=== PATIENT | male | born 1940 | race Caucasian/White ===

== ENCOUNTER → 2017-05-21 | Outpatient (CLI) | payer OTHER | LOC: BMCIMAGING 14:21 | PROVIDERS: ATTEND Internal Medicine | DX: M79.672 Pain in left foot (principal) ==

== ENCOUNTER → 2018-01-04 | Outpatient (CLI) | payer OTHER | LOC: FIMAGING 13:31 | PROVIDERS: ATTEND Psychiatry & Neurology Neurology | DX: R29.898 Other symptoms and signs involving the musculoskeletal system (principal); R93.7 Abnormal findings on diagnostic imaging of other parts of musculoskeletal system ==

== ENCOUNTER → 2018-01-13 | Outpatient (CLI) | payer OTHER | LOC: FIMAGING 12:22 | PROVIDERS: ATTEND Psychiatry & Neurology Neurology | DX: M50.323 Other cervical disc degeneration at C6-C7 level (principal); M89.38 Hypertrophy of bone, other site ==

== ENCOUNTER 2018-02-21 10:33 | Day surgery (SDC) | payer OTHER ==
[2018-02-21] MEDS ORDERED: ceFAZolin 2 GM/SWFI 2 GM/20 ML SYR IVP ONE (10:56)
[2018-02-21] MEDS ORDERED: LR 1,000 ML IV ONE (10:57)
[2018-02-21] MEDS ORDERED: LIDOCAINE 1% 2 ML INJ ID PRN (10:57)
[2018-02-21] MEDS ORDERED: ceFAZolin 2 GM/DEXTROSE 100 ML IV ONE (11:15)
[2018-02-21] MEDS ORDERED: MIDAZOLAM 2 MG/2 ML VIAL IVP ONE (13:26)
--- NOTE | 2018-02-21 13:26 | PDANEPAE ---
ANE History of Present Illness 77 yo for excision melanoma rue ANE Past Medical History - Cardiovascular History Hx Hypertension: Yes Hx Arrhythmias: No Hx Chest Pain: No Hx Coronary Artery / Peripheral Vascular Disease: No Hx CHF / Valvular Disease: No Hx Palpitations: No Cardiovascular History Comment: CHOL RX; - Pulmonary History Hx COPD: No Hx Asthma/Reactive Airway Disease: No Hx Recent Upper Respiratory Infection: No Hx Oxygen in Use at Home: No Hx Sleep Apnea: No Sleep Apnea Screening Result - Last Documented: Negative - Neurologic History Hx Cerebrovascular Accident: No Hx Seizures: No - Endocrine History Hx Diabetes: No - Renal History Hx Renal Disorders: Yes Renal History Comment: 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 - Liver History Hx Hepatic Disorders: No - Neurological & Psychiatric Hx Hx Neurological and Psychiatric Disorders: Yes Neurological / Psychiatric History Comment: ARTHRITIS CERVICAL SPINE-PAIN, STIFFNESS-DENIES N/T. - Cancer History Hx Cancer: Yes Cancer History Comment: MELANOMA R UPPER ARM - Congenital Disorder History Hx Congenital Disorders: No - GI History Hx Gastrointestinal Disorders: No - Other Health History Other Health History: MASS R ARM - Chronic Pain History Chronic Pain: No - Surgical History Prior Surgeries: BILAT SHOULDER SURGERIES X2-SEPARATELY;. BACK SX RUPTURED DISC ~97; ANE Review of Systems Review of Systems: - Exercise capacity METS (RN): 4 METS ANE Patient History - Allergies Allergies/Adverse Reactions: No Allergies [NKDA] Allergy (Verified 02/19/18 16:26) - Home Medications Home Medications: Dutasteride [Avodart] 0.05 mg PO DAILY 01/18/11 [Last Taken Unknown] Atorvastatin Calcium 02/19/18 [Last Taken Unknown] Lisinopril-Hctz 10-12.5 mg Tab 02/19/18 [Last Taken Unknown] Prednisone 02/19/18 [Last Taken Unknown] - NPO status NPO Status: no food or drink >8 hours NPO Since - Liquids (Date): 02/21/18 NPO Since - Liquids (Time): 07:00 NPO Since - Solids (Date): 02/20/18 NPO Since - Solids (Time): 18:00 - Anes Hx Anes Hx: no prior problems - Smoking Hx Smoking Status: Former smoker ANE Labs/Vital Signs - Vital Signs Blood Pressure: 154/83 Heart Rate: 59 Respiratory Rate: 16 O2 Sat (%): 95 Height: 5 ft 11 in Weight: 81.647 kg ANE Physical Exam - Airway Neck exam: FROM Mallampati Score: Class 2 Mouth exam: normal dental/mouth exam - Pulmonary Pulmonary: no respiratory distress - Cardiovascular Cardiovascular: regular rate and rhythym - ASA Status ASA Status: II ANE Anesthesia Plan Anesthesia Plan: GA w LMA
[2018-02-21] MEDS ORDERED: BUPIVACAINE 0.5% 30 ML SDV ONE (13:47)
[2018-02-21] MEDS ORDERED: fentaNYL 100 MCG/2 ML INJ ONE ×2 (13:49→14:51)
[2018-02-21] MEDS ORDERED: PROPOFOL/EMULSION 500 MG/50 ML BOTTLE IV ONE (13:50)
[2018-02-21] MEDS ORDERED: BUPIVACAINE 0.25% 30 ML SDV ONE (13:56)
[2018-02-21] MEDS ORDERED: CEFAZOLIN 2 GM/DEXTROSE/100 ML BAG IV ONE (14:24)
--- NOTE | 2018-02-21 14:26 | PDHPUP ---
History & Physical Update H&P update statement: This history and physical update is based on an assessment of the patient which was completed after admission or registration (within 24 hours), but prior to the surgery/procedure. H&P update: H&P reviewed & patient examined, no change in patient's condition since H&P completed
[2018-02-21] MEDS: BUPIVACAINE 0.25% 30 ML SDV ONE ×2 (15:18→15:20)
[2018-02-21] MEDS ORDERED: NALOXONE HCL 0.4 MG/ML INJ IVP PRN (15:36)
[2018-02-21] MEDS ORDERED: HYDROmorphONE/DILAUDID 1 MG/ML INJ IVP PRN (15:36)
[2018-02-21] MEDS ORDERED: HYDROCODONE/APAP 5/325 TAB PO PRN (15:36)
[2018-02-21] MEDS ORDERED: ONDANSETRON 4 MG/2 ML VIAL IVP PRN (15:36)
[2018-02-21] MEDS ORDERED: fentaNYL 100 MCG/2 ML INJ IVP PRN (15:36)
--- NOTE | 2018-02-21 15:37 | POSTANESTH ---
Post Anesthetic Evaluation Cardiovascular Status: Normal, Stable Respiratory Status: Tx Decrease in SpO2 Level of Consciousness/Mental Status: Alert and Oriented Pain Control: Adequate, Prn Tx Ordered Nausea/Vomiting Control: Adequate, Prn Tx Ordered Complications Possibly Related to Anesthesia: None Noted
[2018-02-21] MEDS ORDERED: OXYCODONE/APAP 5/325 TAB PO PRN (15:38)
[2018-02-21] MEDS ORDERED: ONDANSETRON DISINTEGRATING 4 MG TAB PO PRN (15:38)
[2018-02-21 17:14] VITALS: BP 135/69
--- NOTE | 2018-02-21 17:46 | POSTOPPROG ---
Post Op Note Date of Operation: 02/21/18 (#[id number]) Surgeon: Richard Roas (, FACS) Anesthesiologist: Robert Burns MD Pre-op Diagnosis: melanoma right upper posterior arm Indication: 2.8 Breslow thickness, Bib's level IV melanoma Procedure: wide excision melanoma, sentinel node mapping and axillary lymph node bx Findings: 09/16 sentinel nodes neg Inf/Abcess present in the surg proc area at time of surgery?: No EBL: Minimal (25ml) Specimen(s): sentinel node x 1 wide excision melanoma site
[2018-02-21] MEDS ORDERED: SENNOSIDES/DOCUSATE SODIUM TAB PO SCH (21:00)
--- NOTE | 2018-02-22 04:50 | GOP ---
[f rep st] OPERATIVE REPORT DATE OF OPERATION: 02/21/2018 SURGEON: Richard Rosa MD, FACS ANESTHESIA: General by laryngeal mask. ANESTHESIOLOGIST: Sabine Solis MD. PREOPERATIVE DIAGNOSIS: Malignant melanoma, right upper posterior arm. POSTOPERATIVE DIAGNOSIS: Malignant melanoma, right upper posterior arm. PROCEDURE PERFORMED: 1. Wide excision of malignant melanoma. 2. Pomerene lymph node mapping and axillary lymph node biopsy. FINDINGS: 1. A solitary sentinel node in the upper anterior level 1 chain, submitted for permanent section. No evidence of metastatic malignancy on frozen section. 2. Wide excision melanoma site (2 cm) excised and submitted for permanent section with orientation. ESTIMATED BLOOD LOSS: 25 mL. DESCRIPTION OF PROCEDURE: After informed consent was obtained, the patient was brought to the operating room and placed under general anesthesia. The right arm was circumferentially prepped along with the axilla and shoulder. The patient had a preoperative sentinel node injection but failed to visualize a sentinel node on lymphoscintigraphy. The axillary location of the sentinel node was confirmed with the gamma probe before prepping. After the field was draped, a time-out and identification of the patient was performed. The gamma probe was sterilely sheathed and brought onto the field and used to identify the point of maximum activity at the skin level and this area was infiltrated with 0.25% Marcaine, incised transversely just posterior to the pectoralis border in the upper axilla. Dissection was carried through the skin , subcutaneous tissues and superficial axillary fascia, guiding the dissection by following the signal. The sentinel node was identified, noted to be approximately 1 cm in diameter and pink in color. Lymphovascular structures surrounding the sentinel node were dissected and divided with cautery. The sentinel node was removed from the field and submitted for permanent section. Hemostasis was secured within the cavity. Subcutaneous tissues were closed with 3-0 Vicryl suture. Skin was closed with 4-0 Monocryl suture in a subcuticular fashion. While we were waiting for the results of the frozen section, wide excision of the posterior upper arm melanoma site was performed as follows. The planned incision had been previously marked on the skin with a marking pen and this was infiltrated with 0.25% Marcaine circumferentially and the incision incised with a scalpel and dissection carried out through the skin and subcutaneous tissues. The deep subcutaneous plane was dissected with cautery and hemostasis was secured with cautery. The specimen was removed from the field and tagged for orientation and submitted for permanent section. The wound edges were undermined for a distance of approximately 1.5 to 2 cm in all directions and the wound closed longitudinally with interrupted 2-0 Vicryl sutures at the fascial level and 3-0 Prolene suture in a series of vertical mattress sutures. Topical Xeroform was applied to the wound followed by a Coban. We subsequently received the news that the sentinel node was negative and Dermabond was applied to the sentinel node site. The patient was subsequently extubated and brought to the recovery room in satisfactory condition. Needle, sponge, and instrument count were correct. COMPLICATIONS: None. /[id number]/MODL MTDD
== END 2018-02-21 17:05 | disposition home or self-care (01) ==
LOC: FSGY 10:33
PROVIDERS: ATTEND Surgery
PROC: 0HBBXZZ Excision of Right Upper Arm Skin, External Approach (ICD-10-PCS; principal; 2018-02-21 13:15)
PROC: 07B50ZX Excision of Right Axillary Lymphatic, Open Approach, Diagnostic (ICD-10-PCS; principal; 2018-02-21 13:15)
DX: C43.61 Malignant melanoma of right upper limb, including shoulder (principal)
CPT/HCPCS: 11602; 38500; 78195; A9520; J0690; J2250; J2704; J3010

== ENCOUNTER → 2018-06-16 | Outpatient (CLI) | payer OTHER | LOC: BMCIMAGING 10:58 | PROVIDERS: ATTEND Family Medicine | DX: M25.531 Pain in right wrist (principal) ==

== ENCOUNTER 2018-10-23 09:15 | Day surgery (SDC) | payer OTHER ==
[2018-10-23] MEDS ORDERED: LR 1,000 ML IV ONE (09:34)
[2018-10-23] MEDS ORDERED: BUPIVACAINE 0.25% 30 ML SDV ONE (10:05)
[2018-10-23] MEDS ORDERED: MIDAZOLAM 2 MG/2 ML VIAL ONE (10:15)
[2018-10-23] MEDS ORDERED: MIDAZOLAM 2 MG/2 ML VIAL IVP ONE (10:19)
--- NOTE | 2018-10-23 10:20 | PDANEPAE ---
ANE Past Medical History - Cardiovascular History Hx Hypertension: Yes Hx Arrhythmias: No Hx Chest Pain: No Hx Coronary Artery / Peripheral Vascular Disease: No Hx CHF / Valvular Disease: No Hx Palpitations: No Cardiovascular History Comment: CHOL RX; - Pulmonary History Hx COPD: No Hx Asthma/Reactive Airway Disease: No Hx Recent Upper Respiratory Infection: No Hx Oxygen in Use at Home: No Hx Sleep Apnea: No Sleep Apnea Screening Result - Last Documented: Positive - Neurologic History Hx Cerebrovascular Accident: No Hx Seizures: No Hx Dementia: No - Endocrine History Hx Diabetes: No - Renal History Hx Renal Disorders: No Renal History Comment: 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 - Liver History Hx Hepatic Disorders: No - Neurological & Psychiatric Hx Hx Neurological and Psychiatric Disorders: Yes Neurological / Psychiatric History Comment: ARTHRITIS CERVICAL SPINE-PAIN, STIFFNESS N/T. - Cancer History Hx Cancer: Yes Cancer History Comment: MELANOMA R UPPER ARM - Congenital Disorder History Hx Congenital Disorders: No - GI History Hx Gastrointestinal Disorders: Yes Gastrointestinal History Comment: acid relux - Other Health History Other Health History: MASS R ARM. CHILKOOT. dermatological areas removed 2/5 healing well - Chronic Pain History Chronic Pain: Yes (neck issues,) - Surgical History Prior Surgeries: BILAT SHOULDER SURGERIES X2-SEPARATELY;. BACK SX RUPTURED DISC ~97;. 01/31 removed melanoma ANE Review of Systems Review of Systems: - Exercise capacity METS (RN): 6 METS ANE Patient History - Allergies Allergies/Adverse Reactions: No Allergies [NKDA] Allergy (Verified 10/22/18 14:47) - Home Medications Home Medications: Dutasteride [Avodart 0.5 MG (*)] 01/18/11 [Last Taken Unknown] Atorvastatin Calcium 02/19/18 [Last Taken Unknown] Aspirin 81mg (*) 10/22/18 [Last Taken Unknown] Calcium 10/22/18 [Last Taken Unknown] Glucosamine Chondroitin Caplet 10/22/18 [Last Taken Unknown] Levothyroxine Sodium 10/22/18 [Last Taken Unknown] Lisinopril 10/22/18 [Last Taken Unknown] Multivitamin 10/22/18 [Last Taken Unknown] Nabumetone 10/22/18 [Last Taken Unknown] Nivolumab 10/22/18 [Last Taken Unknown] [place]-3 10/22/18 [Last Taken Unknown] Omeprazole 10/22/18 [Last Taken Unknown] - NPO status NPO Since - Liquids (Date): 10/23/18 NPO Since - Liquids (Time): 06:00 NPO Since - Solids (Date): 10/22/18 NPO Since - Solids (Time): 17:30 - Smoking Hx Smoking Status: Former smoker - Family Anes Hx Family Hx Anesthesia Complications: none ANE Labs/Vital Signs - Vital Signs Blood Pressure: 156/86 Heart Rate: 59 Respiratory Rate: 19 O2 Sat (%): 495 Height: 181.61 cm Weight: 81.647 kg ANE Physical Exam - Airway Neck exam: FROM Mallampati Score: Class 1 Mouth exam: normal dental/mouth exam - Pulmonary Pulmonary: no respiratory distress - Cardiovascular Cardiovascular: regular rate and rhythym - ASA Status ASA Status: II ANE Anesthesia Plan Anesthesia Plan: GA with mask, MAC
[2018-10-23] MEDS ORDERED: fentaNYL 100 MCG/2 ML INJ ONE (10:23)
[2018-10-23] MEDS ORDERED: LIDOCAINE 2% 5 ML SDV ONE (10:23)
[2018-10-23] MEDS ORDERED: PROPOFOL/EMULSION 500 MG/50 ML BOTTLE IV ONE (10:23)
--- NOTE | 2018-10-23 10:26 | PDGENHP ---
History & Physical Chief Complaint: Mass right axilla, avid on PET History of Present Illness: H/o melanoma with wide local excision 01/31. Recent PET shows uptake R axilla with palpable mass. Pertinent Past, Social, Family History: PMHx: HTN, cholesterol, melanoma. PSHx : as above, B shoulder surgery, discectomy. NKDA Relevant Physical Exam: R axilla 1 cm mass Cardiorespiratory Assessment: RRR. CTA B. Risks/benefits reviewed, questions answered. Proceed with R axillary mass excision.
[2018-10-23] MEDS ORDERED: LIDOCAINE 1% 300 MG/30 ML SDV ONE (10:46)
[2018-10-23] MEDS ORDERED: NALOXONE HCL 0.4 MG/ML INJ IVP PRN (11:13)
[2018-10-23] MEDS ORDERED: LABETALOL HCL 5 MG/ML 20 ML MDV IVP PRN (11:13)
[2018-10-23] MEDS ORDERED: ONDANSETRON 4 MG/2 ML VIAL IVP PRN (11:13)
[2018-10-23] MEDS ORDERED: LR 500 ML IV PRN (11:13)
[2018-10-23] MEDS ORDERED: fentaNYL 100 MCG/2 ML INJ IVP PRN (11:13)
--- NOTE | 2018-10-23 11:56 | POSTANESTH ---
Post Anesthetic Evaluation Cardiovascular Status: Normal, Stable Respiratory Status: Normal, Stable Level of Consciousness/Mental Status: Can Participate in Eval Pain Control: Adequate, Prn Tx Ordered Nausea/Vomiting Control: Adequate, Prn Tx Ordered Complications Possibly Related to Anesthesia: None Noted
--- NOTE | 2018-10-23 12:09 | POSTOPPROG ---
Post Op Note Date of Operation: 10/23/18 Surgeon: Med Alba Cookie Padder: CATINA Dominique Anesthesiologist: Dr. Castrejon Anesthesia: IV Sedation Pre-op Diagnosis: R ax mass Post-op Diagnosis: same Procedure: Excision Inf/Abcess present in the surg proc area at time of surgery?: No EBL: Minimal
[2018-10-23 12:48] VITALS: BP 141/77
--- NOTE | 2018-10-23 14:24 | GOP ---
[f rep st] OPERATIVE REPORT DATE OF OPERATION: 10/23/2018 SURGEON: Kleber Alba MD ELECTRIC HOIST OPERATOR: Shelby Edwards MS3 ANESTHESIA: Monitored anesthetic care. ANESTHESIOLOGIST: Derik Castrejon MD PREOPERATIVE DIAGNOSIS: Right axillary mass. POSTOPERATIVE DIAGNOSIS: Right axillary mass. PROCEDURE PERFORMED: Excision of right axilla mass. FINDINGS: The patient had 1 large node and a smaller 1 cm node adjacent as the source of the palpabl e mass. No other lesions were identified. ESTIMATED BLOOD LOSS: 20 cc. INDICATIONS: 77-year-old male with a history of melanoma. Recent PET scan demonstrated activity in the right axilla in the area of a palpable mass. Risks and benefits of procedure were discussed with the patient and his family, their questions were answered, and they wish to proceed. DESCRIPTION OF PROCEDURE: The patient was in the supine position. After induction of adequate IV se dation, the patient was prepped and draped in standard surgical fashion. 1% lidocaine and 0.5% Anselmo ine were injected throughout the right axilla for local anesthesia. Transverse incision was made with #10 blade and carried down the subcu tissues with Bovie cautery and blunt dissection. The axillary fascia was entered and the area palpated carefully. The masses were identified and gently delivered with blunt dissection. Apparent lymphatics were clipped and divided . The specimen was then sent fresh for permanent section. There area was palpated and no other lesi ons were identified after extensive examination. There was thoroughly irrigated and aspirated. Hemostasis was achieved with cautery. The fascia and subcutaneous tissue were closed in layers using 3-0 Vicryl in interrupted fashion. The skin was clos ed with 4-0 Monocryl in a subcuticular stitch. Of note, the initial count was wrong. An x-ray was t aken and the remaining sponge was identified below the drapes. Repeat sponge count was then correct. The wound was sterilely dressed, and the patient was taken to PACU in stable condition. COMPLICATIONS: None. DRAINS: None. /[id number]/MODL
== END 2018-10-23 13:00 | disposition home or self-care (01) ==
LOC: FSGY 09:15
PROVIDERS: ATTEND Surgery
PROC: 07B50ZX Excision of Right Axillary Lymphatic, Open Approach, Diagnostic (ICD-10-PCS; principal; 2018-10-23 10:45)
DX: R59.0 Localized enlarged lymph nodes (principal); C43.9 Malignant melanoma of skin, unspecified; E03.2 Hypothyroidism due to medicaments and other exogenous substances; I10 Essential (primary) hypertension; E78.5 Hyperlipidemia, unspecified; N40.0 Benign prostatic hyperplasia without lower urinary tract symptoms; Z87.891 Personal history of nicotine dependence
CPT/HCPCS: 88184-90; 88185-91; J2250; J2704; J3010

== ENCOUNTER 2019-01-13 07:42 | Emergency (ER) | payer OTHER ==
--- NOTE | 2019-01-13 07:58 | EDPHY ---
H & P Time Seen by Provider: 01/13/19 07:57 HPI/ROS: Chief complaint. Chest pain HPI. 78-year-old male presents with chest pain for the past 2-3 days. It comes and goes. He describes the pain as sharp when it occurs. He had chest discomfort from 2:00 a.m. To 6:00 a.m. This morning. He thought was heartburn and took quite a bit of Tums type medication. He says I "I took more than I should have". He has no pain now. He describes the discomfort as beginning in the mid abdomen radiating up through the epigastrium and then spreading to his chest. Slightly more sensation on the right side of his sternum. There is no radiation. No shortness of breath. He does take a daily medication for GERD. 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 His discomfort today is not worse with exertion or breathing. ROS 10 systems were reviewed and negative with the exception of the elements mentioned in the history of present illness Past Medical/Surgical History: Hypertension, dyslipidemia, metastatic melanoma Family history father had an PA at age 65 Social History: , nonsmoker, no alcohol Smoking Status: Former smoker Physical Exam: General Appearance: Alert pleasant well-developed male mild distress vital signs are stable Eyes: Pupils equal and round no pallor or injection. ENT, Mouth: Mucous membranes are moist. Respiratory: There are no retractions, lungs are clear to auscultation. Cardiovascular: Regular rate and rhythm. Gastrointestinal: Abdomen is soft and nontender, no masses, bowel sounds normal. Abdomen is nontender now but the patient shows me that the discomfort came from just below the epigastrium up through the epigastrium and behind the sternum before spreading to his right chest Neurological: Awake and alert, sensory and motor exams grossly normal. Skin: Warm and dry, no rashes. Musculoskeletal: Neck is supple nontender. Extremities symmetrical, full range of motion. Psychiatric: Patient is oriented X 3, there is no agitation. Constitutional: Initial Vital Signs Temperature (C) 36.7 C 01/13/19 07:43 Heart Rate 73 01/13/19 07:43 Respiratory Rate 18 01/13/19 07:43 Blood Pressure 132/79 H 01/13/19 07:43 O2 Sat (%) 95 01/13/19 07:43 O2 Delivery Mode Room Air Allergies/Adverse Reactions: No Allergies [NKDA] Allergy (Verified 01/13/19 07:42) Home Medications: Medication Instructions Recorded Dutasteride [Avodart 0.5 MG (*)] 01/18/11 Atorvastatin Calcium 02/19/18 Aspirin 81mg (*) 10/22/18 Calcium 10/22/18 Glucosamine Chondroitin Caplet 10/22/18 Levothyroxine Sodium 10/22/18 Lisinopril 10/22/18 Multivitamin 10/22/18 Nabumetone 10/22/18 Nivolumab 10/22/18 [place]-3 10/22/18 Omeprazole 10/22/18 Medical Decision Making - Diagnostics EKG Interpretation: EKG interpreted by me shows normal sinus rhythm normal interval. There is left axis deviation. QRS is otherwise normal. There is no significant ST elevation or depression. No arrhythmia. The rate is 60 No old EKGs for comparison Imaging Results: Imaging Impressions Chest X-Ray 01/13/19 07:58 Impression: Clear lungs. Negative portable chest. Chest x-ray interpreted by me as normal Procedures: IV normal saline, monitor ED Course/Re-evaluation: Re-evaluation at 8:50 a.m. Patient remained stable. He has no chest discomfort. The patient, his , and I discussed imaging, EKG, laboratory evaluation. We discussed risk factors and recommendation for further evaluation. I recommended admission for this patient however he would prefer to be treated as an outpatient. His workup is normal after 2-3 days of off and on chest discomfort. We discussed risks and benefits of in-patient care versus outpatient care. They expressed understanding and agreement Differential Diagnosis: It sounds like this may be reflux disease. Did discomfort starts in the mid abdomen and radiates up through the epigastrium into his chest. He has symptoms more on the right side. He does have some risk factors for coronary artery disease. However he does have known GERD and takes daily omeprazole. After taking quite a few antacids this morning while he was having discomfort his pain has now resolved. - Data Points Laboratory Results: Laboratory Results 01/13/19 08:00 01/13/19 08:00 01/13/19 01/13/19 01/13/19 08:04 08:00 08:00 WBC 6.20 10^3/uL 10^3/uL (3.80-9.50) RBC 5.18 10^6/uL 10^6/uL (4.40-6.38) Hgb 16.2 g/dL g/dL (13.7-17.5) Hct 48.1 % % (40.0-51.0) MCV 92.9 fL fL (81.5-99.8) MCH 31.3 pg pg (27.9-34.1) MCHC 33.7 g/dL g/dL (32.4-36.7) RDW 12.7 % % (11.5-15.2) Plt Count 219 10^3/uL 10^3/uL (150-400) MPV 9.9 fL fL (8.7-11.7) Neut % (Auto) 60.0 % % (39.3-74.2) Lymph % (Auto) 26.5 % % (15.0-45.0) [place] % (Auto) 10.6 % % (4.5-13.0) Eos % (Auto) 2.1 % % (0.6-7.6) Baso % (Auto) 0.5 % % (0.3-1.7) Nucleat RBC Rel Count 0.0 % % (0.0-0.2) Absolute Neuts (auto) 3.72 10^3/uL 10^3/uL (1.70-6.50) Absolute Lymphs (auto) 1.64 10^3/uL 10^3/uL (1.00-3.00) Absolute Monos (auto) 0.66 10^3/uL 10^3/uL (0.30-0.80) Absolute Eos (auto) 0.13 10^3/uL 10^3/uL (0.03-0.40) Absolute Basos (auto) 0.03 10^3/uL 10^3/uL (0.02-0.10) Absolute Nucleated RBC 0.00 10^3/uL 10^3/uL (0-0.01) Immature Gran % 0.3 % % (0.0-1.1) Immature Gran # 0.02 10^3/uL 10^3/uL (0.00-0.10) Sodium 137 mEq/L mEq/L (135-145) Potassium 3.8 mEq/L mEq/L (3.5-5.2) Chloride 101 mEq/L mEq/L (97-110) Carbon Dioxide 27 mEq/l mEq/l (22-31) Anion Gap 9 mEq/L mEq/L (6-14) BUN 21 mg/dL mg/dL (7-23) Creatinine 0.9 mg/dL mg/dL (0.7-1.3) Estimated GFR > 60 Glucose 99 mg/dL mg/dL (70-100) Calcium 9.4 mg/dL mg/dL (8.5-10.4) Total Bilirubin 1.0 mg/dL mg/dL (0.1-1.4) Conjugated Bilirubin 0.1 mg/dL mg/dL (0.0-0.5) Unconjugated Bilirubin 0.9 mg/dL mg/dL (0.0-1.1) AST 29 IU/L IU/L (17-59) ALT 48 IU/L IU/L (21-72) Alkaline Phosphatase 73 IU/L IU/L (38-126) POC Troponin I 0.00 ng/mL ng/mL (0.00-0.08) NT-Pro-B Natriuret Pep 32 pg/mL pg/mL (0-450) Total Protein 6.6 g/dL g/dL (6.3-8.2) Albumin 4.0 g/dL g/dL (3.5-5.0) Lipase 52 IU/L IU/L (23-300) Point of Care Test Results: Chemistry 01/13/19 08:04 POC Troponin I 0.00 ng/mL ng/mL (0.00-0.08) Departure - Departure Disposition: Home, Routine, Self-Care Clinical Impression: Chest pain Qualifiers: Chest pain type: unspecified Qualified Code(s): R07.9 - Chest pain, unspecified Condition: Good Instructions: Chest Pain (ED) Additional Instructions: Continue regular medications including omeprazole Return for worsening chest discomfort or trouble breathing. Call Cardiology today to arrange follow-up appointment in the next 2-3 days for further evaluation of your heart Referrals: Gentry Bishop MD [Primary Care Provider] - As per Instructions Lex Álvarez MD [Medical Doctor] - 1-2 days without fail
[2019-01-13 08:05] LABS: PLATELET COUNT 219 10^3/uL (150-400)
--- NOTE | 2019-01-13 08:25 | CPEKG ---
Test Reason : OPEN Blood Pressure : / mmHG Vent. Rate : 068 BPM Atrial Rate : 068 BPM P-R Int : 177 ms QRS Dur : 111 ms QT Int : 419 ms P-R-T Axes : 041 -30 022 degrees QTc Int : 446 ms Sinus rhythm Left axis deviation Confirmed by Dequan Squires ([id number]) on 01/13/2019 8:24:51 AM Referred By: PHYSICIAN ED Confirmed By:Dequan Squires
[2019-01-13 09:02] VITALS: BP 113/67
== END 2019-01-13 09:21 | disposition home or self-care (01) ==
DX: R07.9 Chest pain, unspecified (principal); I10 Essential (primary) hypertension; C43.9 Malignant melanoma of skin, unspecified; E78.5 Hyperlipidemia, unspecified; K21.9 Gastro-esophageal reflux disease without esophagitis; Z87.891 Personal history of nicotine dependence; Z82.49 Family history of ischemic heart disease and other diseases of the circulatory system
CPT/HCPCS: 84484-ER

== ENCOUNTER → 2019-02-23 | Outpatient (CLI) | payer OTHER | LOC: BMCIMAGING 07:32 ==